=== PATIENT | male | born 1960 | race Caucasian/White ===

== ENCOUNTER 2021-11-30 08:18 | Day surgery (SDC) | payer OTHER ==
[~2021-11-30] VITALS: Ht 172.7 cm; Wt 81.7 kg
[~2021-11-30 08:18] MED LIST: FentaNYL CITRATE PF 100 MCG/2 ML VIAL ONE; MIDAZOLAM HCL 5 MG/ML VIAL ONE; SODIUM CHLORIDE 0.9% 1,000 ML IV ONE
[2021-11-30] MEDS ORDERED: LIDOCAINE 4% 50 ML SOLUTION TP ONE (08:19)
[2021-11-30] MEDS ORDERED: BENZOCAINE 20% 50 MCG/SPRAY 57 GM TP ONE (08:19)
[2021-11-30] MEDS ORDERED: LIDOCAINE 2% 11 ML JELLY TP ONE (08:19)
[2021-11-30 08:20] LABS: COVID AG,FIA SOURCE NASAL SWAB
[2021-11-30] MEDS ORDERED: MethylPREDNISolone SOD SUCC 125 MG/2 ML VIAL ONE (08:55)
[2021-11-30 08:56] LABS: GLUCOMETER DEV NAME(LOC) SDS.; GLUCOSE,POINT OF CARE 189 MG/DL (70-110)
[2021-11-30] MEDS ORDERED: MethylPREDNISolone SOD SUCC 125 MG/2 ML VIAL IVP ONE (09:15)
[2021-11-30] MEDS ORDERED: OXYGEN THERAPY IH SCH (20:00)
== END 2021-11-30 12:20 | disposition home or self-care (01) ==
LOC: SURGERY 08:18
PROVIDERS: ATTEND Internal Medicine Critical Care Medicine
DX: J38.4 Edema of larynx (principal); B37.0 Candidal stomatitis; Z79.899 Other long term (current) drug therapy; J45.909 Unspecified asthma, uncomplicated; E11.9 Type 2 diabetes mellitus without complications; Z98.890 Other specified postprocedural states
CPT/HCPCS: 31623; 88112; 82962; 87206; 87101; 87220; 87070; 88305; 88312; 87186; 31624; 71045; 87015; 87426; J3010; J2930; J2250; Q9967; C9803; Z7610

== ENCOUNTER 2022-12-13 06:34 | Day surgery (SDC) | payer OTHER ==
[~2022-12-13] VITALS: Ht 175.3 cm; Wt 81.7 kg
[~2022-12-13 06:34] MED LIST changes: -FentaNYL CITRATE PF 100 MCG/2 ML VIAL ONE; -MIDAZOLAM HCL 5 MG/ML VIAL ONE; -SODIUM CHLORIDE 0.9% 1,000 ML IV ONE; +SODIUM CHLORIDE 0.9% 1,000 ML ONE
[2022-12-13] MEDS ORDERED: LIDOCAINE 4% 50 ML SOLUTION TP ONE (06:35)
[2022-12-13] MEDS ORDERED: BENZOCAINE 20% 50 MCG/SPRAY 57 GM TP ONE (06:35)
[2022-12-13] MEDS ORDERED: LIDOCAINE 2% 11 ML JELLY TP ONE (06:35)
[2022-12-13] MEDS ORDERED: FLUT16SP NASAL (07:25)
[2022-12-13] MEDS ORDERED: BUDE10.27 IH (07:25)
[2022-12-13] MEDS ORDERED: METF-1211 PO (07:25)
[2022-12-13] MEDS ORDERED: MONT-35 PO (07:25)
[2022-12-13] MEDS ORDERED: INSU100I26 SQ (07:25)
[2022-12-13] MEDS ORDERED: [UNRECOGNIZED DRUG - CODE] PO (07:26)
[2022-12-13] MEDS ORDERED: FLUMAZENIL 0.1 MG/ML 5 ML VIAL IVP ONE (07:42)
[2022-12-13] MEDS ORDERED: DiphenhydrAMINE HCL 50 MG/ML VIAL ONE (07:42)
[2022-12-13] MEDS ORDERED: EPINEPHrine 1:10,000 [1 MG/10 ML] SYRINGE ONE (07:42)
[2022-12-13] MEDS ORDERED: NALOXONE HCL 0.4 MG/ML VIAL ONE (07:42)
[2022-12-13] MEDS ORDERED: MIDAZOLAM HCL 2 MG/2 ML VIAL ONE (07:42)
[2022-12-13] MEDS ORDERED: FentaNYL CITRATE PF 100 MCG/2 ML VIAL ONE (07:42)
[2022-12-13] MEDS ORDERED: ATROPINE SULFATE 0.1 MG/ML 10 ML SYRINGE IVP ONE (07:43)
[2022-12-13] MEDS ORDERED: SODIUM TETRADECYL SULFATE 3% 60 MG/2 ML VIAL IVP ONE (07:43)
[2022-12-13] MEDS ORDERED: SODIUM CHLORIDE 0.9% 1,000 ML IV ONE (08:00)
[2022-12-13 08:16] LABS: GLUCOMETER DEV NAME(LOC) SDS.; GLUCOSE,POINT OF CARE 164 MG/DL (70-110)
[2022-12-13 09:20] VITALS: PULSE 72; RESP 12; O2SAT 100
[2022-12-13] MEDS ORDERED: MethylPREDNISolone SOD SUCC 125 MG/2 ML VIAL ONE (09:28)
[2022-12-13] MEDS ORDERED: MethylPREDNISolone SOD SUCC 125 MG/2 ML VIAL IVP ONE (09:30)
== END 2022-12-13 11:20 | disposition home or self-care (01) ==
LOC: SURGERY 06:34
PROVIDERS: ATTEND Internal Medicine Critical Care Medicine
DX: J38.4 Edema of larynx (principal); B37.0 Candidal stomatitis; Z79.899 Other long term (current) drug therapy; Z98.890 Other specified postprocedural states
CPT/HCPCS: 31623; 88112; 82962; 87206; 87101; 87220; 87070; 31624; 71045; 87015; J3010; J2250; J2930; Q9967; J7030; J0171; J0461; J1200; J2310; J3490; Z7610